=== PATIENT | male | born 1950 | race Caucasian/White ===

== ENCOUNTER → 2024-08-19 13:42 | Outpatient (REF) | payer OTHER, SELFPAY | LOC: MRI 3T 13:42 | PROVIDERS: ATTENDING PHYSICIAN Specialist; FAMILY PHYSICIAN Hospitalist | DX: M25.511 Pain in right shoulder (principal) | CPT/HCPCS: 73221 ==

== ENCOUNTER 2024-09-17 06:00 | Day surgery (SDC) | payer OTHER, SELFPAY ==
[2024-09-08 10:35] VITALS: BMI 23.0
--- NOTE | 2024-09-08 12:32 | CM ---
Addendum entered by Miriam Boyd RN 09/08/24 12:41:
CM spoke with patient's for IA. Patient confirmed demographics. Patient lives in a 55+ community. denied history of VN. Patient is active wit his PCP. Patient has medication coverage.
Patient's plans to use [facility] when patient is surgically cleared.
CM will remain available as needed.
Original Note:
CM reviewed medical records. Plan for SDS on 09/17. CM left message for CM IA.
[2024-09-08 12:53] LABS: Hematocrit 37.9 % (39.0-52.0); Hemoglobin 12.3 g/dL (13.0-18.0); Mean Corp Hgb Conc. 32.5 g/dL (33.0-37.0); Mean Corpuscular Volume 89.0 fL (80.0-94.0); Platelet Count 272 10^3/uL (130-400); Red Cell Dist. Width 13.6 % (11.5-14.5)
[2024-09-08 13:32] LABS: ALT (SGPT) 16 U/L (0-50); AST (SGOT) 20 U/L (17-59); Albumin 4.4 g/dl (3.5-5.0); Alkaline Phosphatase 64 U/L (38-126); Blood Urea Nitrogen 19 mg/dl (9-20); Calcium 9.7 mg/dl (8.4-10.2); Carbon Dioxide 29 mmol/L (22-30); Chloride 104 mmol/L (98-107); Estimated Creatinine Clearance 63 ml/min; Glucose 89 mg/dl (70-99); Potassium 4.5 mmol/L (3.5-5.1); Sodium 140 mmol/L (135-145); Total Protein 7.5 g/dl (6.3-8.2); eGFR > 60.00
[2024-09-08 14:27] LABS: Glycohemoglobin (HgbA1c) 5.6 % (4.0-5.6)
[2024-09-10 09:59] VITALS: BMI 23.0
[2024-09-17] VITALS (11 sets, daily range): BP systolic 120–149; BP diastolic 65–80
[2024-09-17] MEDS: NORMOSOL-R/PLASMALYTE-A 1000 IV (06:48)
[2024-09-17] MEDS: CELEBREX 200 MG PO (06:48)
[2024-09-17] MEDS: TYLENOL 1000 MG PO (06:48)
[2024-09-17] MEDS: DILAUDID 0.25 MG IV (10:24)
[2024-09-17] MEDS: ANCEF 5 IV (11:50)
== END 2024-09-17 12:26 | disposition home or self-care (01) ==
LOC: SDS 06:00
PROVIDERS: ATTENDING PHYSICIAN Specialist; FAMILY PHYSICIAN Hospitalist; OTHER PHYSICIAN Physician Assistant Medical
DX: S46.011A Strain of muscle(s) and tendon(s) of the rotator cuff of right shoulder, initial encounter (principal); X58.XXXA Exposure to other specified factors, initial encounter
CPT/HCPCS: 23472; 36415; 73020; 80053; 83036; 85027; 87070; 93005; C1713; C1776